=== PATIENT | female | born 1965 | race Caucasian/White ===

== ENCOUNTER 2020-02-27 09:41 | Inpatient (IN) | payer BC ==
--- NOTE | 2020-02-27 10:07 | Emergency Department Report ---
ED Neuro Deficit HPI - General Chief Complaint: Neuro Symptoms/Deficit Stated Complaint: CVA Time Seen by Provider: 02/27/20 09:45 Source: patient, family Mode of arrival: Ambulatory Limitations: No Limitations - History of Present Illness Initial Comments: [facility] Date of Service: 02/27/2020 09:44:50 Impression: Small Vessel Infarct Comments/Sign-Out: 54-year-old female with history of diabetesCame in with chief complaints of left-sided weakness upon waking up this morning. Her last known normal was 8 PM last night. She continues to have the left-sided weakness and numbness with ataxia. No signs of large vessel occlusion noted. CAT scan of the head is negative for bleed. She should be admitted for stroke workup with MRI, carotids and echo. Metrics: Last Known Well: 02/26/2020 20:00:00 [facility] Notification Time: 02/27/2020 09:44:20 Arrival Time: 02/27/2020 09:41:00 Stamp Time: 02/27/2020 09:44:50 Time First Login Attempt: 02/27/2020 09:50:34 Video Start Time: 02/27/2020 09:50:34 Symptoms: Left-sided weakness and numbness NIHSS Start Assessment Time: 02/27/2020 09:56:49 Patient is not a candidate for tPA. Patient was not deemed candidate for tPA thrombolytics because of Last Well Known Above 4.5 Hours. Video End Time: 02/27/2020 10:02:22 CT head showed no acute hemorrhage or acute core infarct. Clinical Presentation is not Suggestive of Large Vessel Occlusive Disease Radiologist was not called back for review of advanced imaging because Not indicated ED Physician notified of diagnostic impression and management plan on 02/27/2020 10:03:20 Our recommendations are outlined below. Recommendations: Activate Stroke Protocol Admission/Order Set Stroke/Telemetry Floor Neuro Checks Bedside Swallow Eval DVT Prophylaxis IV Fluids, Normal Saline Head of Bed Below 30 Degrees Euglycemia and Avoid Hyperthermia (PRN Acetaminophen) Antiplatelet Therapy Recommended Sign Out: Discussed with Emergency Department Provider History of Present Illness: Patient is a 54 year old Female. Patient was brought by EMS for symptoms of Left-sided weakness and numbness 54-year-old female with past medical history significant for diabetes came in with chief complaints of left-sided weakness and numbness with some slurred speech. Her last known normal was 8 PM when she went to bed last night. She continues to have mild weakness and numbness on the left side but her speech is normal. NIH stroke scale is seven. There are no signs of large vessel occlusion. CAT scan of the head is negative. She is not a TPA candidate as she is outside the window. She should be admitted for stroke workup with MRI, carotids and echo. CT head showed no acute hemorrhage or acute core infarct. Examination: 1A: Level of Consciousness - Alert; keenly responsive + 0 1B: Ask Month and Age - Both Questions Right + 0 1C: Blink Eyes & Squeeze Hands - Performs Both Tasks + 0 2: Test Horizontal Extraocular Movements - Normal + 0 3: Test Visual Thomas - No Visual Loss + 0 4: Test Facial Palsy (Use Grimace if Obtunded) - Normal symmetry + 0 5A: Test Left Arm Motor Drift - Drift, but doesn't hit bed + 1 5B: Test Right Arm Motor Drift - No Drift for 10 Seconds + 0 6A: Test Left Leg Motor Drift - Drift, hits bed + 2 6B: Test Right Leg Motor Drift - No Drift for 5 Seconds + 0 7: Test Limb Ataxia (FNF/Heel-Acuna) - Ataxia in 2 Limbs + 2 8: Test Sensation - Mild-Moderate Loss: Less Sharp/More Dull + 1 9: Test Language/Aphasia - Normal; No aphasia + 0 10: Test Dysarthria - Normal + 0 11: Test Extinction/Inattention - No abnormality + 0 NIHSS Score: 6 Patient was informed the Neurology Consult would happen via TeleHealth consult by way of interactive audio and video telecommunications and consented to receiving care in this manner. Due to the immediate potential for life-threatening deterioration due to underlying acute neurologic illness, I spent 35 minutes providing critical care. This time includes time for face to face visit via telemedicine, review of medical records, imaging studies and discussion of findings with providers, the patient and/or family. Dr Vincenzo Dunbar [facility] Case [id number] - Related Data Home Medications: Previous Rx's Medication Instructions Recorded Last Taken Type Fluticasone [Flonase] 1 spray NS QDAY #1 bottle 02/19/15 Unknown Rx Pseudoephedrine ER [Sudafed 12 Hr] 120 mg PO BID #30 tablet.er 02/19/15 Unknown Rx methylPREDNISolone [Medrol Dose 4 mg PO .TAPER #1 tab.ds.pk 02/19/15 Unknown Rx Rajan] Allergies/Adverse Reactions: Allergies Allergy/AdvReac Type Severity Reaction Status Date / Time No Known Allergies Allergy Unverified 02/19/15 07:18 ED Review of Systems ROS: Stated complaint: CVA Other details as noted in HPI ED Past Medical Hx - Past Medical History Previous Medical History?: Yes Hx Hypertension: Yes Additional medical history: Cyst on ovary - Surgical History Past Surgical History?: Yes Additional Surgical History: Hysterectomy - Social History Smoking Status: Never Smoker Substance Use Type: Prescribed - Medications Home Medications: Home Medications Medication Instructions Recorded Confirmed Last Taken Type Fluticasone [Flonase] 1 spray NS QDAY #1 bottle 02/19/15 Unknown Rx Pseudoephedrine ER [Sudafed 12 Hr] 120 mg PO BID #30 tablet.er 02/19/15 Unknown Rx methylPREDNISolone [Medrol Dose 4 mg PO .TAPER #1 tab.ds.pk 02/19/15 Unknown Rx Rajan] ED Neuro Physical Exam - General Limitations: No Limitations Suspected Stroke: Yes - NIHSS Assessment Interval: Baseline 1a. Level of Consciousness: alert/keenly responsive 1b. LOC Questions: answers both correctly 1c. LOC Commands: performs tasks correctly 2. Best Gaze: normal 3. Visual: no visual loss 4. Facial Palsy: normal symmetrical movement 5b. Motor Arm Right: no drift 5a. Motor Arm Left: drift 6a. Motor Leg Left: some gravity effort 6b. Motor Leg Right: no drift 7. Limb Ataxia: present 2 limbs 8. Sensory: mild/moderate sensory loss 9. Best Language: no aphasia 10. Dysarthria: normal 11. Extinction/Inattention: no abnormality Total Score: 6 Stroke Severity: Moderate Stroke ED Course Vital Signs 02/27/20 09:44 Temperature 97.4 F L Pulse Rate 99 H Respiratory 16 Rate Blood Pressure 125/70 O2 Sat by Pulse 98 Oximetry Critical care attestation.: If time is entered above; I have spent that time in minutes in the direct care of this critically ill patient, excluding procedure time. ED Disposition Clinical Impression: CVA (cerebral vascular accident) Disposition: DC-[id number] OP ADMIT IP TO THIS HOSP Is pt being admited?: Yes Does the pt Need Aspirin: Yes Condition: Fair
[2020-02-27 10:13] LABS: Basophils # (Auto) 0.1 K/mm3 (0.0-0.1); Basophils % (Auto) 0.6 % (0.0-1.8); Eosinophils # (Auto) 0.2 K/mm3 (0.0-0.4); Eosinophils % (Auto) 1.6 % (0.0-4.3); Hematocrit 44.6 % (30.3-42.9); Hemoglobin 15.3 gm/dl (10.1-14.3); Lymphocytes # (Auto) 2.5 K/mm3 (1.2-5.4); Lymphocytes % (Auto) 25.1 % (13.4-35.0); Mean Corpuscular HGB Conc 34 % (30-34); Mean Corpuscular Volume 87 fl (79-97); Monocytes # (Auto) 0.5 K/mm3 (0.0-0.8); Monocytes % (Auto) 5.1 % (0.0-7.3); Platelet Count 322 K/mm3 (140-440); Red Blood Count 5.11 M/mm3 (3.65-5.03); Red Cell Distribution Width 13.1 % (13.2-15.2)
--- NOTE | 2020-02-27 10:17 | Emergency Department Report ---
ED Neuro Deficit HPI - General Chief Complaint: Neuro Symptoms/Deficit Stated Complaint: CVA Time Seen by Provider: 02/27/20 09:45 Source: patient, family Mode of arrival: Ambulatory Limitations: No Limitations - History of Present Illness Initial Comments: Patient is 54-year-old female with history of hypertension and diabetes. Patient presented to the ER complaining of left upper and lower extremity weakness associated with difficulty speaking and dizziness. Patient stated that she went to bed last night in her normal status. Stroke protocol immediately initiated. Patient immediately moved to CT for emergent CT brain. Stroke telemetry neurology immediately consulted who examined the patient through video conference. -: unknown Location: speech, left face, dysarthria, left arm, left leg, ataxia Presenting Symptoms: Present: Weak/Paralyzed One Side, Facial Droop/Numbness, Unable to Speak Clearly - Related Data Home Medications: Home Medications Medication Instructions Recorded Confirmed Last Taken Topiramate [Topamax] 50 mg PO DAILY 02/27/20 02/27/20 1 Day Ago ~02/26/20 Previous Rx's Medication Instructions Recorded Last Taken Type Fluticasone [Flonase] 1 spray NS QDAY #1 bottle 02/19/15 2 Days Ago Rx ~02/25/20 Allergies/Adverse Reactions: Allergies Allergy/AdvReac Type Severity Reaction Status Date / Time No Known Allergies Allergy Unverified 02/19/15 07:18 ED Review of Systems ROS: Stated complaint: CVA Other details as noted in HPI Comment: All other systems reviewed and negative Constitutional: denies: chills, fever Respiratory: denies: cough, shortness of breath, SOB with exertion Cardiovascular: denies: chest pain, palpitations Gastrointestinal: denies: abdominal pain, nausea, vomiting, diarrhea, constipation, hematemesis, hematochezia Musculoskeletal: denies: back pain Neurological: weakness, numbness, paresthesias, abnormal gait. denies: headache, confusion ED Past Medical Hx - Past Medical History Previous Medical History?: Yes Hx Hypertension: Yes Additional medical history: Cyst on ovary - Surgical History Past Surgical History?: Yes Additional Surgical History: Hysterectomy - Social History Smoking Status: Never Smoker Substance Use Type: Prescribed - Medications Home Medications: Home Medications Medication Instructions Recorded Confirmed Last Taken Type Fluticasone [Flonase] 1 spray NS QDAY #1 bottle 02/19/15 02/27/20 2 Days Ago Rx ~02/25/20 Topiramate [Topamax] 50 mg PO DAILY 02/27/20 02/27/20 1 Day Ago History ~02/26/20 ED Neuro Physical Exam - General Limitations: No Limitations General appearance: alert, in no apparent distress Suspected Stroke: Yes - Head Head exam: Present: atraumatic, normocephalic, normal inspection - Eye Eye exam: Present: normal appearance - ENT ENT exam: Present: normal exam, normal orophraynx, mucous membranes moist - Neck Neck exam: Present: normal inspection, full ROM. Absent: tenderness, meningismus, lymphadenopathy, thyromegaly - Respiratory Respiratory exam: Present: normal lung sounds bilaterally - Cardiovascular Cardiovascular Exam: Present: regular rate, normal rhythm, normal heart sounds - GI/Abdominal GI/Abdominal exam: Present: soft, normal bowel sounds. Absent: distended, tenderness, guarding, rebound, rigid, organomegaly, mass, bruit, pulsatile mass, hernia - Extremities Exam Extremities exam: Present: normal inspection, full ROM, normal capillary refill. Absent: tenderness, pedal edema, calf tenderness - Back Exam Back exam: Present: normal inspection, full ROM. Absent: CVA tenderness (R), CVA tenderness (L), muscle spasm, paraspinal tenderness, vertebral tenderness - Neurological Exam Neurological exam: Present: alert, oriented X3 - NIHSS Assessment Interval: Baseline 1a. Level of Consciousness: alert/keenly responsive 1b. LOC Questions: answers both correctly 1c. LOC Commands: performs tasks correctly 2. Best Gaze: normal 3. Visual: no visual loss 4. Facial Palsy: minor paralysis 5b. Motor Arm Right: no drift 5a. Motor Arm Left: drift 6a. Motor Leg Left: some gravity effort 6b. Motor Leg Right: no drift 7. Limb Ataxia: present 1 limb 8. Sensory: mild/moderate sensory loss 9. Best Language: mild/moderate aphasia 10. Dysarthria: mild/moderate dysarthria 11. Extinction/Inattention: no abnormality Total Score: 8 Stroke Severity: Moderate Stroke - Psychiatric Psychiatric exam: Present: normal mood - Skin Skin exam: Present: warm, intact, normal color ED Course Vital Signs 02/27/20 02/27/20 02/27/20 09:44 10:01 10:15 Temperature 97.4 F L Pulse Rate 99 H 90 88 Respiratory 16 18 12 Rate Blood Pressure 125/70 123/88 Blood Pressure 124/87 [Right] O2 Sat by Pulse 98 93 98 Oximetry 02/27/20 02/27/20 02/27/20 10:30 10:41 10:51 Temperature Pulse Rate 83 88 89 Respiratory 19 19 13 Rate Blood Pressure 116/76 116/76 121/81 Blood Pressure [Right] O2 Sat by Pulse 94 95 97 Oximetry 02/27/20 02/27/20 02/27/20 11:00 11:11 11:21 Temperature Pulse Rate 92 H 85 83 Respiratory 15 11 L 18 Rate Blood Pressure 120/81 120/81 120/80 Blood Pressure [Right] O2 Sat by Pulse 97 98 95 Oximetry 02/27/20 02/27/20 02/27/20 11:30 11:41 11:51 Temperature Pulse Rate 79 101 H 87 Respiratory 16 15 12 Rate Blood Pressure 127/82 127/82 140/83 Blood Pressure [Right] O2 Sat by Pulse 96 98 Oximetry 02/27/20 02/27/20 02/27/20 12:00 12:11 12:21 Temperature Pulse Rate 90 90 80 Respiratory 16 17 19 Rate Blood Pressure 132/88 132/88 133/79 Blood Pressure [Right] O2 Sat by Pulse 96 96 Oximetry 02/27/20 02/27/20 02/27/20 12:30 12:41 12:51 Temperature Pulse Rate 82 84 85 Respiratory 12 14 21 Rate Blood Pressure 118/77 118/77 121/87 Blood Pressure [Right] O2 Sat by Pulse 99 99 99 Oximetry - Lab Data Result diagrams: 02/27/20 10:00 02/27/20 10:00 Lab Results 02/27/20 02/27/20 02/27/20 Range/Units 10:00 10:00 10:00 WBC 10.0 (4.5-11.0) K/mm3 RBC 5.11 H (3.65-5.03) M/mm3 Hgb 15.3 H (10.1-14.3) gm/dl Hct 44.6 H (30.3-42.9) % MCV 87 (79-97) fl MCH 30 (28-32) pg MCHC 34 (30-34) % RDW 13.1 L (13.2-15.2) % Plt Count 322 (140-440) K/mm3 Lymph % (Auto) 25.1 (13.4-35.0) % [place] % (Auto) 5.1 (0.0-7.3) % Eos % (Auto) 1.6 (0.0-4.3) % Baso % (Auto) 0.6 (0.0-1.8) % Lymph # 2.5 (1.2-5.4) K/mm3 [place] # 0.5 (0.0-0.8) K/mm3 Eos # 0.2 (0.0-0.4) K/mm3 Baso # 0.1 (0.0-0.1) K/mm3 Seg Neutrophils % 67.6 (40.0-70.0) % Seg Neutrophils # 6.7 (1.8-7.7) K/mm3 PT 13.0 (12.2-14.9) Sec. INR 0.97 (0.87-1.13) APTT 27.5 (24.2-36.6) Sec. Thrombin Time (15.1-19.6) Sec. Sodium 139 (137-145) mmol/L Potassium 4.1 (3.6-5.0) mmol/L Chloride 101.9 (98-107) mmol/L Carbon Dioxide 22 (22-30) mmol/L Anion Gap 19 mmol/L BUN 18 H (7-17) mg/dL Creatinine 0.5 L (0.7-1.2) mg/dL Estimated GFR > 60 ml/min BUN/Creatinine Ratio 36 % Glucose 220 H (65-100) mg/dL Calcium 9.5 (8.4-10.2) mg/dL Troponin T < 0.010 (0.00-0.029) ng/mL 02/27/20 Range/Units 10:00 WBC (4.5-11.0) K/mm3 RBC (3.65-5.03) M/mm3 Hgb (10.1-14.3) gm/dl Hct (30.3-42.9) % MCV (79-97) fl MCH (28-32) pg MCHC (30-34) % RDW (13.2-15.2) % Plt Count (140-440) K/mm3 Lymph % (Auto) (13.4-35.0) % [place] % (Auto) (0.0-7.3) % Eos % (Auto) (0.0-4.3) % Baso % (Auto) (0.0-1.8) % Lymph # (1.2-5.4) K/mm3 [place] # (0.0-0.8) K/mm3 Eos # (0.0-0.4) K/mm3 Baso # (0.0-0.1) K/mm3 Seg Neutrophils % (40.0-70.0) % Seg Neutrophils # (1.8-7.7) K/mm3 PT (12.2-14.9) Sec. INR (0.87-1.13) APTT (24.2-36.6) Sec. Thrombin Time 15.6 (15.1-19.6) Sec. Sodium (137-145) mmol/L Potassium (3.6-5.0) mmol/L Chloride (98-107) mmol/L Carbon Dioxide (22-30) mmol/L Anion Gap mmol/L BUN (7-17) mg/dL Creatinine (0.7-1.2) mg/dL Estimated GFR ml/min BUN/Creatinine Ratio % Glucose (65-100) mg/dL Calcium (8.4-10.2) mg/dL Troponin T (0.00-0.029) ng/mL - EKG Data -: EKG Interpreted by Me EKG shows normal: sinus rhythm Rate: normal Interpretation: no acute changes - Radiology Data Radiology results: report reviewed - Medical Decision Making Patient is 54-year-old female with history of hypertension and diabetes. Patient presented to the ER complaining of left upper and lower extremity weakness associated with difficulty speaking and dizziness. Patient stated that she went to bed last night in her normal status. Stroke protocol immediately initiated. Patient immediately moved to CT for emergent CT brain. Stroke telemetry neurology immediately consulted who examined the patient through video conference. CT brain is negative for acute finding. I discussed the patient with , stroke telemetry neurologist. She advised that patient is not a TPA candidate because of the time of onset more than 4.5 hours. She also indicated that patient is not a candidate for thrombectomy given her current symptoms so she advised not to order a CTA brain and neck. She advised that patient to be admitted to the hospital for stroke management. I discussed the patient with Dr. Crowley, he advised to admit the patient to Dr. Hall. During my encounters with this patient I was wearing my PPE including a full gown and and N-95 mask. Critical Care Time: Yes Critical care time in (mins) excluding proc time.: 30 Critical care attestation.: If time is entered above; I have spent that time in minutes in the direct care of this critically ill patient, excluding procedure time. ED Disposition Clinical Impression: CVA (cerebral vascular accident) Disposition: DC-09 OP ADMIT IP TO THIS HOSP Is pt being admited?: Yes Condition: Fair
--- NOTE | 2020-02-27 10:17 | Cat Scan Report ---
Head CT without intravenous contrast INDICATION: Left-sided weakness COMPARISON: None FINDINGS: The ventricles are normal in size and position. No hemorrhage or extra-axial fluid collecti on. No edema or mass effect. No territorial infarct seen. Portions of the sinuses visualized are compa r. No skull fracture identified. Periventricular white matter low density is likely due to microangio pathic ischemic change with more focal area of low density in the right periventricular white matter seen. IMPRESSION: Negative head CT CRITICAL RESULT: Time of Discovery: 0900 hours Time of Communication: 0905 hours Licensed Practitioner Receiving Report: Dr. Salazar Morales Read Back Performed: No Automated exposure control was utilized to diminish radiation dose Signer Name: Vito Cali MD Signed: 02/27/2020 10:12 AM Workstation Name: [id number]
[2020-02-27 10:28] LABS: INR 0.97 (0.87-1.13)
[2020-02-27 10:29] LABS: BUN/Creatinine Ratio 36; Blood Urea Nitrogen 18 mg/dL (7-17); Calcium 9.5 mg/dL (8.4-10.2); Hemolysis Index 7; Partial Thromboplastin Time 27.5 Sec. (24.2-36.6)
[2020-02-27] MEDS ORDERED: DEXTROSE 50% IN WATER (25GM) 50 ML SYRINGE IV PRN (13:17)
[2020-02-27] MEDS ORDERED: ACETAMINOPHEN 325 MG TAB PO PRN (13:17)
[2020-02-27] MEDS ORDERED: ONDANSETRON 4 MG/2 ML INJ IV PRN (13:17)
[2020-02-27] MEDS ORDERED: METOCLOPRAMIDE 10 MG/2 ML INJ IV PRN (13:21)
[2020-02-27] MEDS ORDERED: HYDROcodone/ACETAMINOPHEN 5-325 MG TAB PO PRN (13:21)
--- NOTE | 2020-02-27 13:33 | History and Physical Report ---
History of Present Illness Date of examination: 02/27/20 Date of admission: 02/27/20 11:49 Chief complaint: Left side weakness History of present illness: Patient is a 54 yo woman with a history of type 2, DM, hypertension and migraines who initially felt ill about a week ago with headaches and dizziness. She went to her PCP on for headaches and Topamax 50mg daily was prescribed by Dylan Bloom APN. She mistakenly took 2 of those Topamax yesterday. Her last known well time was 8pm at night; She woke up today around 6am with left side weakness. She was out of the therapeutic window for tPA. Her NIHSS is 6. Aside from left side weakness, she noticed facial drooping with numbness and ataxia in which she fell in her closet this morning. 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 PMH: as hpi PSH: hysterectomy SH: no tobacco/etoh/drug abuse FH: denies knowing biological family who are in [facility] ROS: Constitutional: denies: fever ENT: denies: throat or neck pain Respiratory: denies: cough, shortness of breath Cardiovascular: denies: chest pain Endocrine: denies unexplained weight loss or gain Gastrointestinal: denies: abdominal pain, nausea Genitourinary: denies: dysuria Rectal: denies no incontinence, no bleeding, no itching, no discharge Musculoskeletal: denies swelling, + myaglia, muscle weakness Skin: denies: rash Neurological: +headache Hematological/Lymphatic: denies: easy bleeding or easy bruising Allergic/Immunologic: no urticaria, no allergic rhinitis, no anaphylaxis Psych: denies sadness or hopelessness, SI/HI PUI?: No Medications and Allergies Allergies Allergy/AdvReac Type Severity Reaction Status Date / Time No Known Allergies Allergy Unverified 02/19/15 07:18 Home Medications Medication Instructions Recorded Confirmed Last Taken Type Fluticasone [Flonase] 1 spray NS QDAY #1 bottle 02/19/15 Unknown Rx Pseudoephedrine ER [Sudafed 12 Hr] 120 mg PO BID #30 tablet.er 02/19/15 Unknown Rx methylPREDNISolone [Medrol Dose 4 mg PO .TAPER #1 tab.ds.pk 02/19/15 Unknown Rx Rajan] Active Meds: Active Medications Acetaminophen (Tylenol) 650 mg PO Q4H PRN PRN Reason: Pain, Mild (1-3) Acetaminophen/Hydrocodone Bitart ([place] 5/325) 1 each PO Q4H PRN PRN Reason: Pain, Moderate (4-6) Aspirin (Aspirin) 325 mg PO QDAY COSME Atorvastatin Calcium (Lipitor) 40 mg PO QHS COSME Bisacodyl (Dulcolax) 10 mg TN QDAY PRN PRN Reason: Constipation Dextrose (D50w (25gm) Syringe) 50 ml IV Q30MIN PRN; Protocol PRN Reason: Hypoglycemia Famotidine (Pepcid) 20 mg PO BID COSME Heparin Sodium (Porcine) (Heparin) 5,000 unit SUB-Q Q12HR COSME Insulin Human Lispro (Humalog) 0 unit SUB-Q ACHS COSME; Protocol Ondansetron HCl (Zofran) 4 mg IV Q8H PRN PRN Reason: Nausea And Vomiting Sodium Chloride (Sodium Chloride Flush Syringe 10 Ml) 10 ml INJ PRN PRN PRN Reason: LINE FLUSH Exam - Physical Exam Narrative exam: Gen: WDWN, NAD, Awake, Alert, Orientated HEENT: NCAT, EOMI, PERRL, OP Clear Neck: supple, no adenopathy, no thyromegaly, no JVD CVS/Heart: RRR, normal S1S2, pulses present bilaterally Chest/Lungs: CTA B, Symmetrical chest expansion, good air entry bilaterally GI/Abdomen: soft, NTND, good bowel sounds, no guarding or rebound /Bladder: no suprapubic tenderness, no CVA or paraspinal tenderness Extermity/Skin: no c/c/e, no obvious rash MSK: FROM x 3, left hemiparesis Neuro: CN 2-12 grossly intact, no new focal deficits, +left pronator drift +FNF abnormal on left, left face sensory deficit Psych: calm - Constitutional Vitals: Temp Pulse Resp BP Pulse Ox 97.4 F L 83 19 116/76 94 02/27/20 09:44 02/27/20 10:30 02/27/20 10:30 02/27/20 10:30 02/27/20 10:30 Results - Labs CBC & Chem 7: 02/27/20 10:00 02/27/20 10:00 Labs: Laboratory Last Values WBC 10.0 K/mm3 (4.5-11.0) 02/27/20 10:00 RBC 5.11 M/mm3 (3.65-5.03) H 02/27/20 10:00 Hgb 15.3 gm/dl (10.1-14.3) H 02/27/20 10:00 Hct 44.6 % (30.3-42.9) H 02/27/20 10:00 MCV 87 fl (79-97) 02/27/20 10:00 MCH 30 pg (28-32) 02/27/20 10:00 MCHC 34 % (30-34) 02/27/20 10:00 RDW 13.1 % (13.2-15.2) L 02/27/20 10:00 Plt Count 322 K/mm3 (140-440) 02/27/20 10:00 Lymph % (Auto) 25.1 % (13.4-35.0) 02/27/20 10:00 [place] % (Auto) 5.1 % (0.0-7.3) 02/27/20 10:00 Eos % (Auto) 1.6 % (0.0-4.3) 02/27/20 10:00 Baso % (Auto) 0.6 % (0.0-1.8) 02/27/20 10:00 Lymph # 2.5 K/mm3 (1.2-5.4) 02/27/20 10:00 [place] # 0.5 K/mm3 (0.0-0.8) 02/27/20 10:00 Eos # 0.2 K/mm3 (0.0-0.4) 02/27/20 10:00 Baso # 0.1 K/mm3 (0.0-0.1) 02/27/20 10:00 Seg Neutrophils % 67.6 % (40.0-70.0) 02/27/20 10:00 Seg Neutrophils # 6.7 K/mm3 (1.8-7.7) 02/27/20 10:00 PT 13.0 Sec. (12.2-14.9) 02/27/20 10:00 INR 0.97 (0.87-1.13) 02/27/20 10:00 APTT 27.5 Sec. (24.2-36.6) 02/27/20 10:00 Thrombin Time 15.6 Sec. (15.1-19.6) 02/27/20 10:00 Sodium 139 mmol/L (137-145) 02/27/20 10:00 Potassium 4.1 mmol/L (3.6-5.0) 02/27/20 10:00 Chloride 101.9 mmol/L (98-107) 02/27/20 10:00 Carbon Dioxide 22 mmol/L (22-30) 02/27/20 10:00 Anion Gap 19 mmol/L 02/27/20 10:00 BUN 18 mg/dL (7-17) H 02/27/20 10:00 Creatinine 0.5 mg/dL (0.7-1.2) L 02/27/20 10:00 Estimated GFR > 60 ml/min 02/27/20 10:00 BUN/Creatinine Ratio 36 % 02/27/20 10:00 Glucose 220 mg/dL (65-100) H 02/27/20 10:00 Calcium 9.5 mg/dL (8.4-10.2) 02/27/20 10:00 Troponin T < 0.010 ng/mL (0.00-0.029) 02/27/20 10:00 Joaquin/IV: IV Catheter Type [Left INT / Saline Lock Antecubital] Assessment and Plan Assessment and plan: Patient is a 54 yo woman with a history of type 2, DM, hypertension and migraines who initially felt ill about a week ago with headaches and dizziness. She went to her PCP on for headaches and Topamax 50mg daily was prescribed by Dylan Bloom APN. She mistakenly took 2 of those Topamax yes terday. Her last known well time was 8pm at night; She woke up today around 6am with left side weakness. She was out of the therapeutic window for tPA. Her NIHSS is 6. Aside from left side weakness, she noticed facial drooping with numbness and ataxia in which she fell in her closet this morning. 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 * CT head without contrast: negative Acute Ischemic Stroke: treat with ASA, statin and Stroke protocol Type 2 DM with hyperglycemic complication: treat with SSI, check A1C, TSH Migraine headaches: Continue topamax (her taking an extra 50mg should not be a problem), Analgesics Hypertension: low salt diet, permissive for now, DVT ppx sq heparin full code Home reconciliation: she takes metformin but unable to recall others, she will get her to take a picture of her pill bottle Advance Directives: Yes (full code) VTE prophylaxis?: Chemical Plan of care discussed with patient/family: Yes
[2020-02-27] MEDS: INSULIN LISPRO 100 UNIT/ML SUB-Q SCH ×2 (18:09→22:06)
[2020-02-27] MEDS: FAMOTIDINE 20 MG TAB PO SCH ×2 (20:56→22:06)
[2020-02-28 05:56] LABS: Chol/HDL Ratio 3.6 %
--- NOTE | 2020-02-28 07:54 | Progress Note ---
Assessment and Plan Assessment and plan: Patient is a 54 yo woman with a history of type 2, DM, hypertension and migraines who initially felt ill about a week ago with headaches and dizziness. She went to her PCP on for headaches and Topamax 50mg daily was prescribed by Dylan Bloom APN. She mistakenly took 2 of those Topamax yeste rday. Her last known well time was 8pm at night; She woke up today around 6am with left side weakness. She was out of the therapeutic window for tPA. Her NIHSS is 6. Aside from left side weakness, she noticed facial drooping with numbness and ataxia in which she fell in her closet this morning. 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 * CT head without contrast: negative Acute Ischemic Stroke: treat with ASA, statin and Stroke protocol PUI COVID-19 from outside Urgent care center: consulted ID, ordered test Type 2 DM with hyperglycemic complication: treat with SSI, checked A1C is 8.7, TSH Migraine headaches: Continue topamax (her taking an extra 50mg should not be a problem), Analgesics Hypertension: low salt diet, permissive for now, DVT ppx sq heparin full code Home reconciliation: she takes metformin but unable to recall others, she will get her to take a picture of her pill bottle 02/28/20: During the admission assessment yesterday, AGAPITO Conde discovered that patient had been tested for COVID-19 at Urgent Care on via ED nursing documentation; I discussed with ID, Dr. Ramirez, he suggests we isolate patient and do our own COVID 19 testing. I ordered rapid FLU which is still not resulted. I called [facility] in [place], [place] at [phone] today and left my name and pager number to call on the answering machine. Procaltonin pending. Patient had no symptoms and Urgent care but someone at her job tested positive. Awaiting to test, d/w Sherrie from Microbiology and she will test. History Interval history: Patient was seen and examined. Follow-up on current diagnosis of CVA suspect. Overnight uneventful as no events directly reported to me. Patient denies any chest pain, shortness breath, nausea/vomiting or severe headaches. Imaging, naomi sing note, chart, labs and old chart reviewed. Discussed with patient. During the admission assessment, RN Amaya discovered that patient had been tested for COVID-19 at Urgent Care on via ED nursing documentation; which I still can't locate. I spoke with ED physician who admit this patient and he did not mention of any COVID testing. Patient never mentioned to me of being tested on at Urgent care; she told me about being treated for migraines, she had no mask on. I really think is reckless and a mistake for Urgent care centers to test for COVID19 due to transient nature of patient and poor ability for follow up. Patient says she was not instructed to self quarantine or wear a mask. She denies sob, cough and thought the weakness was from a stroke. RN tried calling the Urgent care center and it was closed. I discussed with ID Dr. Ramirez, he suggest we isolate and do our own testing. PUI?: Yes COVID19: Pending (hasn't been sent) Hospitalist Physical - Physical exam Narrative exam: Gen: WDWN, NAD, Awake, Alert, Orientated HEENT: NCAT, EOMI, PERRL, OP Clear Neck: supple, no adenopathy, no thyromegaly, no JVD CVS/Heart: RRR, normal S1S2, pulses present bilaterally Chest/Lungs: CTA B, Symmetrical chest expansion, good air entry bilaterally GI/Abdomen: soft, NTND, good bowel sounds, no guarding or rebound /Bladder: no suprapubic tenderness, no CVA or paraspinal tenderness Extermity/Skin: no c/c/e, no obvious rash MSK: FROM x 3, left hemiparesis Neuro: CN 2-12 grossly intact, no new focal deficits, +left pronator drift +FNF abnormal on left, left face sensory deficit Psych: calm - Constitutional Vitals: Temp Pulse Resp BP Pulse Ox 97.6 F 86 18 116/72 95 02/28/20 04:26 02/28/20 04:26 02/28/20 04:26 02/28/20 04:26 02/28/20 04:26 Results - Labs CBC & Chem 7: 02/27/20 10:00 02/27/20 10:00 Labs: Laboratory Last Values WBC 10.0 K/mm3 (4.5-11.0) 02/27/20 10:00 RBC 5.11 M/mm3 (3.65-5.03) H 02/27/20 10:00 Hgb 15.3 gm/dl (10.1-14.3) H 02/27/20 10:00 Hct 44.6 % (30.3-42.9) H 02/27/20 10:00 MCV 87 fl (79-97) 02/27/20 10:00 MCH 30 pg (28-32) 02/27/20 10:00 MCHC 34 % (30-34) 02/27/20 10:00 RDW 13.1 % (13.2-15.2) L 02/27/20 10:00 Plt Count 322 K/mm3 (140-440) 02/27/20 10:00 Lymph % (Auto) 25.1 % (13.4-35.0) 02/27/20 10:00 [place] % (Auto) 5.1 % (0.0-7.3) 02/27/20 10:00 Eos % (Auto) 1.6 % (0.0-4.3) 02/27/20 10:00 Baso % (Auto) 0.6 % (0.0-1.8) 02/27/20 10:00 Lymph # 2.5 K/mm3 (1.2-5.4) 02/27/20 10:00 [place] # 0.5 K/mm3 (0.0-0.8) 02/27/20 10:00 Eos # 0.2 K/mm3 (0.0-0.4) 02/27/20 10:00 Baso # 0.1 K/mm3 (0.0-0.1) 02/27/20 10:00 Seg Neutrophils % 67.6 % (40.0-70.0) 02/27/20 10:00 Seg Neutrophils # 6.7 K/mm3 (1.8-7.7) 02/27/20 10:00 PT 13.0 Sec. (12.2-14.9) 02/27/20 10:00 INR 0.97 (0.87-1.13) 02/27/20 10:00 APTT 27.5 Sec. (24.2-36.6) 02/27/20 10:00 Thrombin Time 15.6 Sec. (15.1-19.6) 02/27/20 10:00 D-Dimer 158.82 ng/mlDDU (0-234) 02/27/20 19:39 Sodium 139 mmol/L (137-145) 02/27/20 10:00 Potassium 4.1 mmol/L (3.6-5.0) 02/27/20 10:00 Chloride 101.9 mmol/L (98-107) 02/27/20 10:00 Carbon Dioxide 22 mmol/L (22-30) 02/27/20 10:00 Anion Gap 19 mmol/L 02/27/20 10:00 BUN 18 mg/dL (7-17) H 02/27/20 10:00 Creatinine 0.5 mg/dL (0.7-1.2) L 02/27/20 10:00 Estimated GFR > 60 ml/min 02/27/20 10:00 BUN/Creatinine Ratio 36 % 02/27/20 10:00 Glucose 220 mg/dL (65-100) H 02/27/20 10:00 Hemoglobin A1c 8.7 % (4-6) H 02/28/20 04:40 Calcium 9.5 mg/dL (8.4-10.2) 02/27/20 10:00 Ferritin 644.1 ng/mL (13.0-400.0) H 02/27/20 19:39 Lactate Dehydrogenase 189 units/L (91-180) H 02/27/20 19:39 Troponin T < 0.010 ng/mL (0.00-0.029) 02/27/20 10:00 C-Reactive Protein 0.00 mg/dL (0.00-1.30) 02/27/20 19:39 Triglycerides 122 mg/dL (2-149) 02/28/20 04:40 Cholesterol 144 mg/dL (50-199) 02/28/20 04:40 LDL Cholesterol Direct 94 mg/dL (50-130) 02/28/20 04:40 HDL Cholesterol 40 mg/dL (40-59) 02/28/20 04:40 Cholesterol/HDL Ratio 3.60 % 02/28/20 04:40 TSH 1.830 mlU/mL (0.270-4.200) 02/28/20 04:40 Joaquin/IV: Voiding Method Toilet IV Catheter Type [Left INT / Saline Lock Antecubital] Active Medications - Current Medications Current Medications: Generic Name Dose Route Start Last Admin Trade Name Freq PRN Reason Stop Dose Admin Acetaminophen 650 mg 02/27/20 13:17 Tylenol PO Q4H PRN Pain, Mild (1-3) Acetaminophen/Hydrocodone Bitart 1 each 02/27/20 13:21 [place] 5/325 PO Q4H PRN Pain, Moderate (4-6) Aspirin 325 mg 02/28/20 10:00 Aspirin PO QDAY [facility] Atorvastatin Calcium 40 mg 02/27/20 22:00 02/27/20 22:05 Lipitor PO Not Given QHS [facility] Bisacodyl 10 mg 02/27/20 13:17 Dulcolax HI QDAY PRN Constipation Dextrose 50 ml 02/27/20 13:17 D50w (25gm) Syringe IV Q30MIN PRN Hypoglycemia Protocol Famotidine 20 mg 02/27/20 22:00 02/27/20 22:06 Pepcid PO Not Given BID [facility] Heparin Sodium (Porcine) 5,000 unit 02/28/20 22:00 Heparin SUB-Q Q12HR [facility] Insulin Human Lispro 0 unit 02/27/20 16:30 02/27/20 22:06 Humalog SUB-Q Not Given ACHS [facility] Protocol Metoclopramide HCl 10 mg 02/27/20 13:21 Reglan IV Q8H PRN Nausea And Vomiting Ondansetron HCl 4 mg 02/27/20 13:17 Zofran IV Q8H PRN Nausea And Vomiting Sodium Chloride 10 ml 02/27/20 13:17 02/27/20 20:56 Sodium Chloride Flush Syringe 10 Ml IV 10 ml PRN PRN Administration LINE FLUSH
[2020-02-28] MEDS: ASPIRIN 325 MG TAB PO SCH (09:20)
[2020-02-28] MEDS: FAMOTIDINE 20 MG TAB PO SCH ×2 (09:21→21:35)
[2020-02-28] MEDS: TOPIRAMATE TAB 25 MG TAB PO SCH (09:21)
[2020-02-28] MEDS: INSULIN LISPRO 100 UNIT/ML SUB-Q SCH ×4 (09:21→23:54)
--- NOTE | 2020-02-28 14:17 | Consultation ---
History of Present Illness - Reason for Consult Consult date: 02/28/20 COVID PUI?: Yes COVID19: Pending (hasn't been sent) - History of Present Illness 54-year-old female past medical history type 2 diabetes, hypertension, migraines admitted to the hospital with an acute stroke. Her symptoms began about a week prior to admission with headaches and dizziness. She went to her primary care doctor for the headaches and was given treatment. The morning admission she awoke with left-sided weakness, and as such was brought to the hospital. It is noted that she has been tested for [id number] on , however the results are unknown and the patient is unaware of the results. She was not wearing a mask, and was not instructed to self quarantine. She presently denies any shortness of breath or cough. Afebrile with a white count of 10. Not currently on antibiotics. No cultures for review. Imaging personally reviewed: Head CT no acute abnormality. Review of Systems: Bold if positive, otherwise negative General: fevers, chills, rigors, weakness HEENT: visual disturbance, diplopia, eye pain Respiratory: cough, sputum, hemoptysis, shortness of breath Cardiovascular: chest pain, syncope Gastrointestinal: nausea, vomiting, diarrhea, abdominal pain Genitourinary: dysuria, hematuria, flank pain Musculoskeletal: neck pain, back pain, joint pain, edema Neurologic: headaches, seizures Hematologic: easy bruising or bleeding Endocrine: night sweats, acute weight loss Skin: rash, jaundice, redness Psychiatric: suicidal, homicidal ideation Past History Past Medical History: diabetes Past Surgical History: No surgical history Social history: no significant social history Family history: no significant family history Medications and Allergies Allergies Allergy/AdvReac Type Severity Reaction Status Date / Time No Known Allergies Allergy Unverified 02/19/15 07:18 Home Medications Medication Instructions Recorded Confirmed Last Taken Type Fluticasone [Flonase] 1 spray NS QDAY #1 bottle 02/19/15 02/27/20 2 Days Ago Rx ~02/25/20 Topiramate [Topamax] 50 mg PO DAILY 02/27/20 02/27/20 1 Day Ago History ~02/26/20 Active Meds: Active Medications Acetaminophen (Tylenol) 650 mg PO Q4H PRN PRN Reason: Pain, Mild (1-3) Acetaminophen/Hydrocodone Bitart ([place] 5/325) 1 each PO Q4H PRN PRN Reason: Pain, Moderate (4-6) Aspirin (Aspirin) 325 mg PO QDAY [facility] Last Admin: 02/28/20 09:20 Dose: 325 mg Documented by: Atorvastatin Calcium (Lipitor) 40 mg PO QHS [facility] Last Admin: 02/27/20 22:05 Dose: Not Given Documented by: Bisacodyl (Dulcolax) 10 mg CA QDAY PRN PRN Reason: Constipation Dextrose (D50w (25gm) Syringe) 50 ml IV Q30MIN PRN; Protocol PRN Reason: Hypoglycemia Famotidine (Pepcid) 20 mg PO BID [facility] Last Admin: 02/28/20 09:21 Dose: 20 mg Documented by: Heparin Sodium (Porcine) (Heparin) 5,000 unit SUB-Q Q12HR [facility] Insulin Human Lispro (Humalog) 0 unit SUB-Q ACHS [facility]; Protocol Last Admin: 02/28/20 13:15 Dose: 4 unit Documented by: Metoclopramide HCl (Reglan) 10 mg IV Q8H PRN PRN Reason: Nausea And Vomiting Ondansetron HCl (Zofran) 4 mg IV Q8H PRN PRN Reason: Nausea And Vomiting Sodium Chloride (Sodium Chloride Flush Syringe 10 Ml) 10 ml IV PRN PRN PRN Reason: LINE FLUSH Last Admin: 02/27/20 20:56 Dose: 10 ml Documented by: Topiramate (Topamax) 50 mg PO DAILY [facility] Last Admin: 02/28/20 09:21 Dose: 50 mg Documented by: Physical Examination - Physical Exam Narrative exam: Physical Exam: Constitutional: Deferred due to PPE conservation strategy Head, Ears, Nose: Deferred due to PPE conservation strategy Eyes: Deferred due to PPE conservation strategy Neck: Deferred due to PPE conservation strategy Oral: Deferred due to PPE conservation strategy Cardiovascular: Deferred due to PPE conservation strategy Respiratory: Deferred due to PPE conservation strategy GI: Deferred due to PPE conservation strategy Musculoskeletal: Deferred due to PPE conservation strategy Skin: Deferred due to PPE conservation strategy Hem/Lymphatic: Deferred due to PPE conservation strategy Psych: Deferred due to PPE conservation strategy Neurological: Deferred due to PPE conservation strategy Please see hospitalist note for today for exam. - Constitutional Vitals: Vital Signs Temp Pulse Resp BP Pulse Ox 97.6 F 86 18 116/72 97 02/28/20 04:26 02/28/20 04:26 02/28/20 04:26 02/28/20 04:26 02/28/20 07:54 Temperature -Last 24 Hours Temperature 97.6 F Temperature 98.6 F Temperature 98.6 F Temperature 98.2 F Results - Labs CBC & Chem 7: 02/27/20 10:00 02/27/20 10:00 Labs: Abnormal lab results 02/27/20 02/27/20 02/28/20 Range/Units 19:39 19:39 04:40 POC Glucose (70-105) Hemoglobin A1c 8.7 H (4-6) % Ferritin 644.1 H (13.0-400.0) ng/mL Lactate Dehydrogenase 189 H (91-180) units/L 02/28/20 02/28/20 Range/Units 08:35 11:46 POC Glucose 187 H 215 H (70-105) Hemoglobin A1c (4-6) % Ferritin (13.0-400.0) ng/mL Lactate Dehydrogenase (91-180) units/L Assessment and Plan Cultures: None A/P: 54 yo F PMHx DM2 admitted for acute CVA, concern for COVID-19 #COVID-19 rule out: While she does not have typical symptoms assoicated with COVID, she is a poor historian and the fact she was recently tested at an urgent care makes me concerned there were symptoms or signs she did not tell us about. It is also possible it was an unwarranted test in this patient with an acute CVA, however since we do not have access to the result I feel it is prudent to re-test in house in order to protect our staff. #Acute CVA: likely cause of her symptoms #DM2: tight glycemic control for best outcomes. Recs: -Follow up COVID-19 testing. -Continue precautions for now, remove if testing negative. -No treatment indicated at present Thank you for the consult, we will continue to follow. Kelly Ramirez MD [facility] M: [phone] O: [phone] F: [phone]
[2020-02-28] MEDS: HEPARIN 5,000 UNIT/1 ML VIAL SUB-Q SCH (21:34)
[2020-02-29] MEDS: HEPARIN 5,000 UNIT/1 ML VIAL SUB-Q SCH ×2 (09:10→22:59)
[2020-02-29] MEDS: INSULIN LISPRO 100 UNIT/ML SUB-Q SCH ×4 (09:10→23:00)
[2020-02-29] MEDS: FAMOTIDINE 20 MG TAB PO SCH ×2 (09:11→22:59)
[2020-02-29] MEDS: TOPIRAMATE TAB 25 MG TAB PO SCH (09:11)
[2020-02-29] MEDS: ASPIRIN 325 MG TAB PO SCH (09:11)
--- NOTE | 2020-02-29 11:39 | Progress Note ---
Assessment and Plan Assessment and plan: Patient is a 54 yo woman with a history of type 2, DM, hypertension and migraines who initially felt ill about a week ago with headaches and dizziness. She went to her PCP on for headaches and Topamax 50mg daily was prescribed by Dylan Bloom APN. She mistakenly took 2 of those Topamax yeste rday. Her last known well time was 8pm at night; She woke up today around 6am with left side weakness. She was out of the therapeutic window for tPA. Her NIHSS is 6. Aside from left side weakness, she noticed facial drooping with numbness and ataxia in which she fell in her closet this morning. 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 * CT head without contrast: negative Acute Ischemic Stroke: treat with ASA, statin and Stroke protocol NEGATIVE COVID-19 from outside Urgent care center: consulted ID, re-ordered test Type 2 DM with hyperglycemic complication: treat with SSI, checked A1C is 8.7, TSH normal Migraine headaches: Continue topamax (her taking an extra 50mg should not be a problem), Analgesics Hypertension: low salt diet, permissive for now, DVT ppx sq heparin full code Home reconciliation: she takes metformin but unable to recall others, she will get her to take a picture of her pill bottle 02/28/20: During the admission assessment yesterday, AGAPITO Conde discovered that patient had been tested for COVID-19 at Urgent Care on via ED nursing documentation; I discussed with ID, Dr. Ramirez, he suggests we isolate patient and do our own COVID 19 testing. I ordered rapid FLU which is still not resu lted. I called [facility] in [place], [place] at [phone] today and left my name and pager number to call on the answering machine. Pro-caltonin pending. Patient had no symptoms and Urgent care but someone at her job tested positive. Awaiting to test, d/w Sherrie from Microbiology and she will test. 02/29/20: COVID-19 test pending, I also called [facility] and spoke with Soren and BETY Bloom who says [facility] is a PCP center. He called patient to report that she is COVID-19 negative via [facility]. I told him that Urgent Care should not be doing COVID-19 because lack of follow up (such as not being open on the Weekends and not having an answering service, I called multiple times and left my pager number and noone called me from that Urgent Care Center). Await our confirmation test, then needs MRI and rehab assessment. History Interval history: Patient was seen and examined. Follow-up on current diagnosis of CVA suspect. Overnight uneventful as no events directly reported to me. Patient denies any chest pain, shortness breath, nausea/vomiting or severe headaches. Imaging, nursing note, chart, labs and old chart reviewed. Discussed with patient. During the admission assessment, AGAPITO Conde discovered that patient had been tested for COVID-19 at Urgent Care on via ED nursing documentation; which I still can't locate. I spoke with ED physician who admit this patient and he did not me ntion of any COVID testing. Patient never mentioned to me of being tested on at Urgent care; she told me about being treated for migraines, she had no mask on. I really think is reckless and a mistake for Urgent care centers to test for COVID19 due to transient nature of patient and poor ability for follow up. Patient says she was not instructed to self quarantine or wear a mask. She denies sob, cough and thought the weakness was from a stroke. RN tried calling the Urgent care center and it was closed. I discussed with ID Dr. Ramirez, he suggest we isolate and do our own testing. PUI?: Yes COVID19: Pending (hasn't been sent) Hospitalist Physical - Physical exam Narrative exam: Gen: WDWN, NAD, Awake, Alert, Orientated HEENT: NCAT, EOMI, PERRL, OP Clear Neck: supple, no adenopathy, no thyromegaly, no JVD CVS/Heart: RRR, normal S1S2, pulses present bilaterally Chest/Lungs: CTA B, Symmetrical chest expansion, good air entry bilaterally GI/Abdomen: soft, NTND, good bowel sounds, no guarding or rebound /Bladder: no suprapubic tenderness, no CVA or paraspinal tenderness Extermity/Skin: no c/c/e, no obvious rash MSK: FROM x 3, left hemiparesis Neuro: CN 2-12 grossly intact, no new focal deficits, +left pronator drift +FNF abnormal on left, left face sensory deficit Psych: calm - Constitutional Vitals: Temp Pulse Resp BP Pulse Ox 98.1 F 96 H 20 106/77 100 02/29/20 06:00 02/29/20 05:01 02/29/20 05:01 02/29/20 06:00 02/29/20 06:00 Results - Labs CBC & Chem 7: 02/27/20 10:00 02/27/20 10:00 Labs: Laboratory Last Values WBC 10.0 K/mm3 (4.5-11.0) 02/27/20 10:00 RBC 5.11 M/mm3 (3.65-5.03) H 02/27/20 10:00 Hgb 15.3 gm/dl (10.1-14.3) H 02/27/20 10:00 Hct 44.6 % (30.3-42.9) H 02/27/20 10:00 MCV 87 fl (79-97) 02/27/20 10:00 MCH 30 pg (28-32) 02/27/20 10:00 MCHC 34 % (30-34) 02/27/20 10:00 RDW 13.1 % (13.2-15.2) L 02/27/20 10:00 Plt Count 322 K/mm3 (140-440) 02/27/20 10:00 Lymph % (Auto) 25.1 % (13.4-35.0) 02/27/20 10:00 [place] % (Auto) 5.1 % (0.0-7.3) 02/27/20 10:00 Eos % (Auto) 1.6 % (0.0-4.3) 02/27/20 10:00 Baso % (Auto) 0.6 % (0.0-1.8) 02/27/20 10:00 Lymph # 2.5 K/mm3 (1.2-5.4) 02/27/20 10:00 [place] # 0.5 K/mm3 (0.0-0.8) 02/27/20 10:00 Eos # 0.2 K/mm3 (0.0-0.4) 02/27/20 10:00 Baso # 0.1 K/mm3 (0.0-0.1) 02/27/20 10:00 Seg Neutrophils % 67.6 % (40.0-70.0) 02/27/20 10:00 Seg Neutrophils # 6.7 K/mm3 (1.8-7.7) 02/27/20 10:00 PT 13.0 Sec. (12.2-14.9) 02/27/20 10:00 INR 0.97 (0.87-1.13) 02/27/20 10:00 APTT 27.5 Sec. (24.2-36.6) 02/27/20 10:00 Thrombin Time 15.6 Sec. (15.1-19.6) 02/27/20 10:00 D-Dimer 158.82 ng/mlDDU (0-234) 02/27/20 19:39 Sodium 139 mmol/L (137-145) 02/27/20 10:00 Potassium 4.1 mmol/L (3.6-5.0) 02/27/20 10:00 Chloride 101.9 mmol/L (98-107) 02/27/20 10:00 Carbon Dioxide 22 mmol/L (22-30) 02/27/20 10:00 Anion Gap 19 mmol/L 02/27/20 10:00 BUN 18 mg/dL (7-17) H 02/27/20 10:00 Creatinine 0.5 mg/dL (0.7-1.2) L 02/27/20 10:00 Estimated GFR > 60 ml/min 02/27/20 10:00 BUN/Creatinine Ratio 36 % 02/27/20 10:00 Glucose 220 mg/dL (65-100) H 02/27/20 10:00 POC Glucose 165 (70-105) H 02/29/20 08:01 Hemoglobin A1c 8.7 % (4-6) H 02/28/20 04:40 Calcium 9.5 mg/dL (8.4-10.2) 02/27/20 10:00 Ferritin 644.1 ng/mL (13.0-400.0) H 02/27/20 19:39 Lactate Dehydrogenase 189 units/L (91-180) H 02/27/20 19:39 Troponin T < 0.010 ng/mL (0.00-0.029) 02/27/20 10:00 C-Reactive Protein 0.00 mg/dL (0.00-1.30) 02/27/20 19:39 Triglycerides 122 mg/dL (2-149) 02/28/20 04:40 Cholesterol 144 mg/dL (50-199) 02/28/20 04:40 LDL Cholesterol Direct 94 mg/dL (50-130) 02/28/20 04:40 HDL Cholesterol 40 mg/dL (40-59) 02/28/20 04:40 Cholesterol/HDL Ratio 3.60 % 02/28/20 04:40 Procalcitonin < 0.05 ng/mL (<0.15) 02/27/20 19:39 TSH 1.830 mlU/mL (0.270-4.200) 02/28/20 04:40 Joaquin/IV: Voiding Method Toilet IV Catheter Type [Left INT / Saline Lock Antecubital] Active Medications - Current Medications Current Medications: Generic Name Dose Route Start Last Admin Trade Name Freq PRN Reason Stop Dose Admin Acetaminophen 650 mg 02/27/20 13:17 Tylenol PO Q4H PRN Pain, Mild (1-3) Acetaminophen/Hydrocodone Bitart 1 each 02/27/20 13:21 [place] 5/325 PO Q4H PRN Pain, Moderate (4-6) Aspirin 325 mg 02/28/20 10:00 02/29/20 09:11 Aspirin PO 325 mg QDAY [facility] Administration Atorvastatin Calcium 40 mg 02/27/20 22:00 02/28/20 21:35 Lipitor PO 40 mg QHS [facility] Administration Bisacodyl 10 mg 02/27/20 13:17 Dulcolax MS QDAY PRN Constipation Dextrose 50 ml 02/27/20 13:17 D50w (25gm) Syringe IV Q30MIN PRN Hypoglycemia Protocol Famotidine 20 mg 02/27/20 22:00 02/29/20 09:11 Pepcid PO 20 mg BID [facility] Administration Heparin Sodium (Porcine) 5,000 unit 02/28/20 22:00 02/29/20 09:10 Heparin SUB-Q 5,000 unit Q12HR [facility] Administration Insulin Human Lispro 0 unit 02/27/20 16:30 02/29/20 09:10 Humalog SUB-Q 2 unit ACHS [facility] Administration Protocol Metoclopramide HCl 10 mg 02/27/20 13:21 Reglan IV Q8H PRN Nausea And Vomiting Ondansetron HCl 4 mg 02/27/20 13:17 Zofran IV Q8H PRN Nausea And Vomiting Sodium Chloride 10 ml 02/27/20 13:17 02/28/20 21:35 Sodium Chloride Flush Syringe 10 Ml IV 10 ml PRN PRN Administration LINE FLUSH Topiramate 50 mg 02/28/20 10:00 02/29/20 09:11 Topamax PO 50 mg DAILY [facility] Administration Nutrition/Malnutrition Assess - Dietary Evaluation Nutrition/Malnutrition Findings: Nutrition Notes Start: 02/28/20 09:48 Freq: Status: Active Protocol: Document 02/28/20 09:48 LM (Rec: 02/28/20 09:51 LM [id number]) Nutrition Notes Need for Assessment generated from: MD Order,Education Initial or Follow up Brief Note Current Diagnosis Diabetes,Hypertension Other Pertinent Diagnosis acute ishemic stroke, migranes Current Diet cardiac/consistent CHO Labs/Tests POC glu 187 A1c 8.7 Pertinent Medications Humalog Height 5 ft 6 in Weight 74.843 kg [place] Body Weight (kg) 59.09 BMI 26.6 Weight Status Overweight Subjective/Other Information MD consult for diet education. Unable to reach pt 2x. Nutrition Intervention Follow-Up By: 02/29/20 Additional Comments F/U for diet education/ assessment
--- NOTE | 2020-02-29 17:01 | Event Note ---
Date: 02/29/20 Got notified by lab that COVID-19 test here is negative as well.
--- NOTE | 2020-03-01 09:53 | Magnetic Resonance Report ---
NONENHANCED MR SCAN OF THE BRAIN: INDICATION / CLINICAL INFORMATION: Stroke TECHNIQUE: Multiplanar, multisequence MR images of the brain obtained. COMPARISON: CT scan of the head from 02/27/2020 FINDINGS: Abnormal MRI scan BRAIN / INTRACRANIAL CONTENTS: Subacute infarction is seen in the right pinedo radiata extending infe riorly towards the posterior limb of internal capsule and right posterior putamen and laterally towar ds the body of right caudate. This infarction is more than 12 hours old (increased T2 signal intensit y) but less than 3 days old (low ADC values). In the gradient echo images, no susceptibility changes are seen. This would exclude hemorrhagic changes. Brainstem and cerebellar hemispheres are normal. CRANIOCERVICAL JUNCTION: No significant abnormality. VASCULAR FLOW-VOIDS: Fusiform aneurysm of the right internal carotid artery extending from the cavern ous segment up to termination is seen. ORBITS: Intracranial optic nerve is in close proximity to the saccular aneurysm on the right side. SINUSES / MASTOIDS: No significant abnormality of visualized sinuses and mastoid air cells. ADDITIONAL FINDINGS: None. 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
--- NOTE | 2020-03-01 10:08 | Magnetic Resonance Report ---
MRA HEAD WITHOUT CONTRAST HISTORY: Stroke; left-sided weakness and slurred speech COMPARISON: None. TECHNIQUE: Routine MRA of the head is performed. 3-D/MIP reformats postprocessed. CONTRAST: None. FINDINGS: Intracranial vertebral arteries: No significant abnormality. Basilar artery: No significant abnormality. Posterior cerebral arteries: No significant abnormality. Intracranial internal carotid arteries: Fusiform aneurysm right internal carotid artery is seen exten ding from the distal cavernous segment up to right internal carotid artery terminus. Aneurysm is larg er in the communicating segment. In both source images and in the mid images, this aneurysm appears t o be fusiform aneurysm and not saccular aneurysm. Anterior cerebral arteries: Right anterior cerebral artery supplies both A2 segments. Left the A1 seg ment is hypoplastic. Middle cerebral arteries: No significant abnormality. Variants and anomalies:None Additional findings: Considering the age and the lack of generalized intracranial atherosclerotic va scular disease, this fusiform aneurysm has to be considered as nonatherosclerotic fusiform aneurysm. Etiology for nonatherosclerotic fusiform aneurysm would be collagen vascular disorders (lupus), viral infections (varizella and HIV), inherited vasculopathies (Marfan and Twila-Danlos) or vascular cuta neous syndrome (NF 1 and Tuberous sclerosis). Expansion of the intracranial end of the right optic canal is seen suggesting chronicity. 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 Signer Name: Joel Pham MD Signed: 03/01/2020 10:03 AM Workstation Name: [id number]
[2020-03-01] MEDS: HEPARIN 5,000 UNIT/1 ML VIAL SUB-Q SCH (10:18)
[2020-03-01] MEDS: INSULIN LISPRO 100 UNIT/ML SUB-Q SCH ×4 (10:18→21:53)
[2020-03-01] MEDS: ASPIRIN 325 MG TAB PO SCH (10:19)
[2020-03-01] MEDS: FAMOTIDINE 20 MG TAB PO SCH ×2 (10:19→21:05)
[2020-03-01] MEDS: TOPIRAMATE TAB 25 MG TAB PO SCH (10:53)
--- NOTE | 2020-03-01 12:14 | Progress Note ---
Assessment and Plan Acute Ischemic Stroke with left-sided weakness: - treat with ASA, statin and Stroke protocol CT head: Negative MRI/MRI brain Subacute infarction in the right centrum semiovale wall is extending inferiorly towards the posterior limb of internal capsule. 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 2D echo, pending -Consult neurology for further recommendation -PT eval pending Right internal carotid artery aneurysm -We will follow neurology recommendation COVID-19 -Ruled out Left-sided hemiparesis, follow PT eval Type 2 DM with hyperglycemic complication: treat with SSI, checked A1C is 8.7, TSH normal Migraine headaches: Continue topamax, Analgesics Hypertension: low salt diet, permissive for now, DVT ppx sq heparin full code Disposition: PT recommended HH and roller walker. can go home once walker is arranged and after 2d echo Brief history: 54-year-old female past medical history type 2 diabetes, hypertension, migraines admitted to the hospital with an acute stroke. Her symptoms began about a week prior to admission with headaches and dizziness. She went to her primary care doctor for the headaches and was given treatment. The morning admission she awoke with left-sided weakness, and as such was brought to the hospital. Hospitalist physical: GENERAL: well-developed and well-nourished female lying on bed appeared to be in no discomfort. HEENT: Normocephalic. Atraumatic. No conjunctival congestion or icterus. Patient has moist mucous membranes. NECK: Supple. Trachea midline. CHEST/LUNGS: Clear to auscultated bilaterally, breathing nonlabored. No wheezes crackles or rhonchi. HEART/CARDIOVASCULAR: Regular in rate and rhythm. S1 and S2 positive. ABDOMEN: Abdomen is soft, nontender. Patient has normal bowel sounds. SKIN: There is no rash. Warm and dry. NEURO: Left sided weakness. Follows command. MUSCULOSKELETAL: No joint effusion or tenderness. EXTRIMITY: No edema, no cyanosis or clubbing. PSYCH: Cooperative. Subjective Date of service: 03/01/20 Interval history: Patient seen and examined. Medical records and medication list reviewed. No acute event overnight noted by the RN. Patient denies any chest pain or difficulty breathing. Patient is tolerating diet. Continue to complains of slurred speech and left-sided weakness Discussed plan of care at bedside with patient. PUI?: Yes COVID19: Negative Objective - Constitutional Vitals: Vital Signs - 12hr 03/01/20 03/01/20 03/01/20 03:59 08:19 11:30 Temperature 98.0 F 97.7 F Pulse Rate 94 H 108 H 96 H Respiratory 18 18 18 Rate Blood Pressure 108/52 133/90 110/68 O2 Sat by Pulse 95 97 96 Oximetry - Labs CBC & Chem 7: 02/27/20 10:00 02/27/20 10:00 Labs: Abnormal lab results 02/29/20 02/29/20 03/01/20 Range/Units 17:16 21:12 08:32 POC Glucose 248 H 229 H 190 H (70-105) 03/01/20 Range/Units 11:42 POC Glucose 206 H (70-105)
--- NOTE | 2020-03-01 13:14 | Vascular Lab Report ---
"DUPLEX DOPPLER ULTRASOUND CAROTID, BILATERAL INDICATION: stroke. FINDINGS: RIGHT CAROTID: Mild atherosclerotic plaque. Right ICA peak systolic velocity: 85 cm/sec. Right Vertebral Artery: Antegrade flow. LEFT CAROTID: Mild atherosclerotic plaque. Left ICA peak systolic velocity: 108 cm/sec. Left Vertebral Artery: Antegrade flow. IMPRESSION: 1. Right Internal Carotid Artery: Less than 50% diameter stenosis. 2. Left Internal Carotid Artery: Less than 50% diameter stenosis. Velocity criteria are extrapolated from diameter data as defined by the Society of Radiologists in [facility] Consensus Conference, Radiology 2003; 229;340-346. Degree of Stenosis (%) || ICA PSV (cm/sec) || Plaque estimate (%) || ICA/CCA PSV Ratio Normal <125 None <2.0 <50 <125 <50 <2.0 50-69 125-230 50 2.0-4.0 70 but less than 100 >230 50 >4.0 Near occlusion High, low, or none visible variable Total occlusion None visible; no lumen N/A Signer Name: Bao Grayson MD Signed: 03/01/2020 1:09 PM Workstation Name: [id number]"
--- NOTE | 2020-03-01 14:58 | Discharge Summary ---
Providers - Providers Date of Admission: 02/27/20 11:49 Date of discharge: 03/02/20 Attending physician: NASIMA RODRIGEZ 02/27/20 13:17 Consult to Case Management [CONS] Routine Services Needed at Discharge: Home Health Services Notified:: REPRESENTATIVE PERSONAL SERVICE Consult to Dietitian/Nutrition [CONS] Routine Physician Instructions: Reason For Exam: Reason for Consult: Nutrition Recommendations Reason for Consult: Diet education Occupational Therapy Evaluate and Treat [CONS] Routine Comment: Reason For Exam: Neuro deficits Physical Therapy Evaluation and Treat [CONS] Routine Comment: Reason For Exam: Neuro deficits 02/27/20 19:04 Consult to Physician [CONS] Routine Comment: Consulting Provider: MARISOL HOLM Physician Instructions: i spoke with Reason For Exam: r/o covid 19 03/01/20 11:37 Consult to Physician [CONS] Routine Comment: Consulting Provider: JODRY VAZQUEZ Physician Instructions: Reason For Exam: CVA Primary care physician: SPOUT POSITIONER Hospitalization Condition: Fair Hospital course: 54-year-old female past medical history type 2 diabetes, hypertension, migraines admitted to the hospital with an acute stroke. Her symptoms began about a week prior to admission with headaches and dizziness. She went to her primary care doctor for the headaches and was given treatment. The morning admission she awoke with left-sided weakness, and as such was brought to the hospital for further evaluation and management. Her stroke work-up showed subacute infarction of the posterior limb of internal capsule. Neurology was consulted and recommended to continue aspirin and statin, tight glycemic control and blood pressure management. Patient was evaluated by physical therapy and recommended home health with roller walker. Patient was then discharged home in stable condition with outpatient follow-up. Discharge diagnosis and mx: Acute Ischemic Stroke with left-sided weakness: - treat with ASA, statin, s/p Stroke protocol - neurology consulted CT head: Negative MRI/MRI brain Subacute infarction in the right centrum semiovale wall is extending inferiorly towards the posterior limb of internal capsule. 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 2D echo showed EF of 35 to 40% -Consult neurology for further recommendation -PT recommended home health and roller walker. Right internal carotid artery aneurysm -outpt f/u with neurosurgery CHF with a systolic dysfunction, EF 35 to 40% -Compensated, patient will continue aspirin and statin - she was also started on BB COVID-19 -Ruled out Left-sided hemiparesis, follow PT eval Type 2 DM with hyperglycemic complication: treat with SSI, checked A1C is 8.7, TSH normal. started on metformin on d/c Migraine headaches: Continue topamax, Analgesics Hypertension: low salt diet, permissive for now, DVT ppx sq heparin full code Hospitalist physical: GENERAL: well-developed and well-nourished female lying on bed appeared to be in no discomfort. HEENT: Normocephalic. Atraumatic. No conjunctival congestion or icterus. Patient has moist mucous membranes. NECK: Supple. Trachea midline. CHEST/LUNGS: Clear to auscultated bilaterally, breathing nonlabored. No wheezes crackles or rhonchi. HEART/CARDIOVASCULAR: Regular in rate and rhythm. S1 and S2 positive. ABDOMEN: Abdomen is soft, nontender. Patient has normal bowel sounds. SKIN: There is no rash. Warm and dry. NEURO: Left sided weakness. Follows command. MUSCULOSKELETAL: No joint effusion or tenderness. EXTRIMITY: No edema, no cyanosis or clubbing. PSYCH: Cooperative. Disposition: [id number] HOME UNDER HOME [facility] Time spent for discharge: 34 minutes Core Measure Documentation - Palliative Care Palliative Care/ Comfort Measures: Not Applicable - Core Measures Any of the following diagnoses?: stroke - Heart Failure Discharge Requirements SERENA/ARB for LVSD if EF <40%: No Reason for no SERENA/ARB: Hypotension Beta mendez at discharge: Yes - Stroke Discharge Requirements Statin for LDL = or >70 mg/dl on DC: Yes Anticoag for atrial fib/atrial flutter: Not Applicable Antithrombotic for ischemic stroke: Yes Exam - Constitutional Vitals: Temp Pulse Resp BP Pulse Ox 97.7 F 96 H 18 110/68 96 03/01/20 11:30 03/01/20 11:30 03/01/20 11:30 03/01/20 11:30 03/01/20 11:30 Plan Activity: advance as tolerated Weight Bearing Status: Weight Bear as Tolerated Diet: low fat, low salt, diabetic Special Instructions: restrict fluid intake to (1.5 L/day), record daily BP diary, record blood sugar diary Durable Medical Equipment Needed Upon Discharge: Walker-Rolling Additional Instructions: f/u with neurosurgery outpt Follow up with: BARON STEVENS MD [Primary Care Provider] - 7 Days RAFY WHITE MD [Staff Physician] - 7 Days Prescriptions: AtorvaSTATin [Lipitor] 40 mg PO QHS #30 tablet carvediloL [Coreg] 3.125 mg PO BID #60 tablet metFORMIN [Glucophage] 500 mg PO BIDDIAB #60 tablet Aspirin EC [Halfprin EC] 81 mg PO QDAY #30 tablet.
--- NOTE | 2020-03-01 15:19 | Consultation ---
History of Present Illness Reason for Consult: Left-sided weakness Chief complaint: Left-sided weakness History of present illness: The patient was admitted few days back with a left-sided weakness. There was a confusion about the COVID testing which was repeated while here and it was reported to be negative. The patient is doing better she walked today. She has history of type 2 diabetes mellitus hypertension and migraine headaches. Past History Past Medical History: diabetes Past Surgical History: No surgical history Social history: no significant social history Family history: no significant family history Medications and Allergies Allergies Allergy/AdvReac Type Severity Reaction Status Date / Time No Known Allergies Allergy Unverified 02/19/15 07:18 Home Medications Medication Instructions Recorded Confirmed Last Taken Type Fluticasone [Flonase] 1 spray NS QDAY #1 bottle 02/19/15 02/27/20 2 Days Ago Rx ~02/25/20 Topiramate [Topamax] 50 mg PO DAILY 02/27/20 02/27/20 1 Day Ago History ~02/26/20 Aspirin EC [Halfprin EC] 81 mg PO QDAY #30 tablet. 03/01/20 Unknown Rx AtorvaSTATin [Lipitor] 40 mg PO QHS #30 tablet 03/01/20 Unknown Rx metFORMIN [Glucophage] 500 mg PO BIDDIAB #60 tablet 03/01/20 Unknown Rx Active Meds: Active Medications Acetaminophen (Tylenol) 650 mg PO Q4H PRN PRN Reason: Pain, Mild (1-3) Acetaminophen/Hydrocodone Bitart ([place] 5/325) 1 each PO Q4H PRN PRN Reason: Pain, Moderate (4-6) Aspirin (Aspirin) 325 mg PO QDAY [facility] Last Admin: 03/01/20 10:19 Dose: 325 mg Documented by: Atorvastatin Calcium (Lipitor) 40 mg PO QHS [facility] Last Admin: 02/29/20 22:59 Dose: 40 mg Documented by: Bisacodyl (Dulcolax) 10 mg [place] QDAY PRN PRN Reason: Constipation Dextrose (D50w (25gm) Syringe) 50 ml IV Q30MIN PRN; Protocol PRN Reason: Hypoglycemia Famotidine (Pepcid) 20 mg PO BID [facility] Last Admin: 03/01/20 10:19 Dose: 20 mg Documented by: Insulin Human Lispro (Humalog) 0 unit SUB-Q ACHS [facility]; Protocol Last Admin: 03/01/20 13:02 Dose: 3 unit Documented by: Metformin HCl (Glucophage) 500 mg PO BIDDIAB [facility] Metoclopramide HCl (Reglan) 10 mg IV Q8H PRN PRN Reason: Nausea And Vomiting Ondansetron HCl (Zofran) 4 mg IV Q8H PRN PRN Reason: Nausea And Vomiting Sodium Chloride (Sodium Chloride Flush Syringe 10 Ml) 10 ml IV PRN PRN PRN Reason: LINE FLUSH Last Admin: 02/28/20 21:35 Dose: 10 ml Documented by: Topiramate (Topamax) 50 mg PO DAILY [facility] Last Admin: 03/01/20 10:53 Dose: 50 mg Documented by: Review of Systems All systems: negative (10 point review of system obtained all was negative except there is the history of present illness) Physical Examination - Vital Signs Vital Signs: Vital Signs Temp Pulse Resp BP Pulse Ox 97.4 F L 99 H 16 125/70 98 02/27/20 09:44 02/27/20 09:44 02/27/20 09:44 02/27/20 09:44 02/27/20 09:44 - Physical Exam Narrative exam: Neurological examination Alert awake oriented x3. Language exams are normal. Cranial nerve PERRLA EOMI there may be mild left facial central weakness. Motor examination left arm drift positive for a 4/5. Left lower leg 4/5. Right upper and lower extremity normal power. Results - Laboratory Findings CBC and BMP: 02/27/20 10:00 02/27/20 10:00 Abnormal Lab Findings: Abnormal Labs 02/27/20 02/27/20 02/27/20 10:00 10:00 19:39 RBC 5.11 H Hgb 15.3 H Hct 44.6 H RDW 13.1 L BUN 18 H Creatinine 0.5 L Glucose 220 H POC Glucose Hemoglobin A1c Ferritin 644.1 H Lactate Dehydrogenase 02/27/20 02/28/20 02/28/20 19:39 04:40 08:35 RBC Hgb Hct RDW BUN Creatinine Glucose POC Glucose 187 H Hemoglobin A1c 8.7 H Ferritin Lactate Dehydrogenase 189 H 02/28/20 02/28/20 02/29/20 11:46 16:49 08:01 RBC Hgb Hct RDW BUN Creatinine Glucose POC Glucose 215 H 211 H 165 H Hemoglobin A1c Ferritin Lactate Dehydrogenase 02/29/20 02/29/20 02/29/20 11:24 17:16 21:12 RBC Hgb Hct RDW BUN Creatinine Glucose POC Glucose 268 H 248 H 229 H Hemoglobin A1c Ferritin Lactate Dehydrogenase 03/01/20 03/01/20 08:32 11:42 RBC Hgb Hct RDW BUN Creatinine Glucose POC Glucose 190 H 206 H Hemoglobin A1c Ferritin Lactate Dehydrogenase Assessment and Plan The patient has lacunar stroke in the right-sided central semiovale extended in feriorly. It is a lacunar stroke. She has chronic hypertension diabetes. The patient clinically is much better now. Also the MRA of the head was done which shows a fusiform aneurysm in the right ICA without atherosclerotic changes. Plancontinue aspirin 325 mg p.o. daily and Lipitor 40 mg p.o. nightly. Patient insisting to go home. The patient can be discharged home and to be followed as an outpatient by neurology and neurosurgery. Neurosurgery to evaluate for the fusiform aneurysm . Thank you
[2020-03-01] MEDS: metFORMIN 500 MG TAB PO SCH (17:34)
[2020-03-02] MEDS: ASPIRIN 325 MG TAB PO SCH (09:21)
[2020-03-02] MEDS: FAMOTIDINE 20 MG TAB PO SCH (09:21)
[2020-03-02] MEDS: INSULIN LISPRO 100 UNIT/ML SUB-Q SCH ×2 (09:21→13:40)
[2020-03-02] MEDS: metFORMIN 500 MG TAB PO SCH (09:21)
[2020-03-02] MEDS: TOPIRAMATE TAB 25 MG TAB PO SCH (09:22)
[2020-03-02 10:50] VITALS: BP 111/69
== END 2020-03-02 14:20 | disposition home health service (06) | DRG 65 ==
LOC: ED 09:41 → 4A 11:49 → 3A 20:08 → 4A 02-29 18:56
PROVIDERS: ADMIT Internal Medicine; ATTEND Internal Medicine
DX: I63.9 Cerebral infarction, unspecified (principal); G81.94 Hemiplegia, unspecified affecting left nondominant side; G43.909 Migraine, unspecified, not intractable, without status migrainosus; I10 Essential (primary) hypertension; E11.65 Type 2 diabetes mellitus with hyperglycemia; I67.1 Cerebral aneurysm, nonruptured; Z90.710 Acquired absence of both cervix and uterus; Z03.818 Encounter for observation for suspected exposure to other biological agents ruled out
CPT/HCPCS: 36415; 70450; 70544; 70551; 80048; 80061; 82728; 82962; 83036; 83615; 84145; 84443; 84484; 85025; 85379; 85610; 85670; 85730; 86140; 93005; 93010; 93306; 93880; G0378; A9270-GY; J1644; J1815